=== PATIENT | female | born 1995 | race Caucasian/White ===

== ENCOUNTER 2022-06-18 08:29 | Outpatient (CLI) | payer MEDICARE, SELFPAY | END 2022-06-18 08:30 | disposition home or self-care (01) | PROVIDERS: PCP Physician Assistant; Visit Provider Family Medicine | DX: Z00.00 Encounter for general adult medical examination without abnormal findings (principal); Z13.6 Encounter for screening for cardiovascular disorders; M13.0 Polyarthritis, unspecified; Z11.3 Encounter for screening for infections with a predominantly sexual mode of transmission | CPT/HCPCS: 80053; 80061; 86039; 86200; 86431; 87341 ==

== ENCOUNTER 2022-07-02 14:29 | Outpatient (CLI) | payer MEDICARE, SELFPAY | END 2022-07-02 14:30 | disposition home or self-care (01) | LOC: NFLDREF 14:31 | PROVIDERS: PCP Physician Assistant; Visit Provider Internal Medicine | DX: Z71.84 Encounter for health counseling related to travel (principal) | CPT/HCPCS: 86706 ==